=== PATIENT | male | born 1985 | race Caucasian/White ===

== ENCOUNTER 2019-03-21 10:34 | Emergency (ER) | payer BC, SELFPAY ==
[2019-03-21 10:50] VITALS: BP 138/87; PULSE 94; RESP 18; TEMP 36.8; O2SAT 98
--- NOTE | 2019-03-21 10:52 | ED.URI ---
HPI - URI/Sore Throat General Chief Complaint: Upper Respiratory Infection Stated Complaint: sore throat/congested Time Seen by Provider: 03/21/19 10:52 Source: patient and RN notes reviewed History of Present Illness HPI Narrative: Patient is a 33-year-old male that presents the urgent care with complaints of cold-like symptoms for 1 week and a sore throat and congestion for the last 2 days. Patient states that his main reason for getting evaluated is because his father is coming into town and he has a lot of medical issues and he did not want to give him anything. Patient denies any fever, chills, nausea, vomiting. Has not used anything [id number] to treat his symptoms. No other acute complaints. No acute distress noted. Patient read the plan of care. Related Data Home Medications Medication Instructions Recorded Confirmed clomiphene citrate 50 mg PO EVERY OTHER DAY 03/21/19 03/21/19 Allergies Allergy/AdvReac Type Severity Reaction Status Date / Time No Known Allergies Allergy Verified 03/21/19 10:52 Review of Systems Review of Systems: Narrative: CONSTITUTIONAL: Denies fever, chills, or sweats. EYES: Denies visual changes, redness, or discharge. ENT: Reports of sore throat, postnasal drainage, sinus congestion CARDIOVASCULAR: Denies chest pain, palpitations, or edema. RESPIRATORY: Denies cough or dyspnea. GASTROINTESTINAL: Denies abdominal pain, nausea, vomiting, or diarrhea. GENITOURINARY: Denies dysuria or hematuria. SKIN: Denies rash or itching. MUSCULOSKELETAL: Denies back pain, joint pain, or myalgia. NEUROLOGIC: Denies headache, numbness, or weakness. All other systems reviewed are negative, except as documented in HPI. PMFSH Comments At the time of my signature, I reviewed and agree with the nursing past medical, surgical, social, and family history. There is no relevant family history pertinent to the patient complaint. Exam Narrative: Exam Narrative: GENERAL: This is a well-nourished, well-developed patient, in no apparent distress. HEAD: normocephalic, atraumatic. EYES: PERRL. Sclera clear/white. Vision is grossly intact. EARS: External ears normal, auditory canals clear and without drainage, scarring noted on bilateral TMs, TMs normal without perforation. Hearing grossly intact. NOSE: External nose normal with no obvious nasal discharge, nares without redness, no rhinorrhea. THROAT: Mucous membranes moist, posterior pharynx clear. Moderate postnasal drainage NECK: Neck supple, non-tender without lymphadenopathy, masses or thyromegaly. CARDIOVASCULAR: Regular rate and rhythm without murmurs, gallops, or rubs. RESPIRATORY: Clear to auscultation. Breath sounds equal bilaterally. No wheezes, rales, or rhonchi. SKIN: warm, intact with no suspicious lesions or rash, good texture and turgor. NEURO: awake, alert, and oriented to person, place and time. There were no obvious focal neurologic abnormalities. EXTREMITIES: No clubbing, cyanosis, or edema. Course Vital Signs Vital signs: Vital Signs Temperature 98.2 F 03/21/19 10:50 Pulse Rate 94 03/21/19 10:50 Respiratory Rate 18 03/21/19 10:50 Blood Pressure 138/87 03/21/19 10:50 Pulse Oximetry 98 03/21/19 10:50 Temperature 98.2 F 03/21/19 10:50 Pulse Rate 94 03/21/19 10:50 Respiratory Rate 18 03/21/19 10:50 Blood Pressure 138/87 03/21/19 10:50 Pulse Oximetry 98 03/21/19 10:50 Reviewed MDM - URI/Sore Throat MDM Narrative Medical decision making narrative: Reviewed lab results with the patient. He is aware that strep swab was negative. Educated him on culture we will call within 72 hours if culture is positive and antibiotics are necessary. Advised the patient to use [id number] medications such as Claritin/Zyrtec/Flonase for symptom relief. Use Tylenol/ibuprofen as needed. Increase fluids and rest. Use humidifier at night. Follow-up with PCP within 2 to 5 days or for worsening symptoms or failure to
== END 2019-03-21 11:07 | disposition home or self-care (01) ==
PROVIDERS: Emergency Provider Nurse Practitioner Family
DX: J06.9 Acute upper respiratory infection, unspecified (principal)
CPT/HCPCS: 87081; 87880; 99203; G0463